=== PATIENT | female | born 1985 | race Caucasian/White ===

== ENCOUNTER 2022-07-31 08:45 | Emergency (ER) | payer OTHER ==
--- NOTE | 2022-07-31 09:28 | ED Physician Documentation ---
PD HPI FOCAL NEURO - Stated complaint Stated Complaint: HIGH HEART RATE/FACE NUMB - Chief complaint Chief Complaint: Neuro - History obtained from History obtained from: Patient - Additional information Additional information: Patient is a 37-year-old female with no significant past medical history presenting for evaluation of right-sided facial droop that she noticed this morning when she woke up at 6 AM. Patient denies a headache, numbness, weakness to extremities. She denies visual disturbance or hearing issues. She reports that multiple family members on her father side have had Morales's palsy. She denies a history of hypertension, hyperlipidemia, diabetes.She reports having RSV around [place] time but otherwise denies recent illness. Review of Systems Constitutional: denies: Fever Cardiac: denies: Chest pain / pressure Respiratory: denies: Dyspnea GI: denies: Abdominal Pain : denies: Dysuria Musculoskeletal: denies: Back pain Neurologic: reports: Focal weakness. denies: Difficulty speaking, Headache PD PAST MEDICAL HISTORY - Past Medical History Past Medical History: No Cardiovascular: None Respiratory: None Neuro: None Endocrine/Autoimmune: None GI: None SHEET METAL TECHNICIAN: None : None HEENT: None Psych: None Musculoskeletal: None Derm: None - Past Surgical History Past Surgical History: No - Present Medications Home Medications: Ambulatory Orders Medication Instructions Recorded Confirmed Valacyclovir HCl [Valtrex] 1,000 mg PO TID 7 Days #21 tablet 07/31/22 predniSONE [Deltasone] 60 mg PO DAILY 7 Days #21 tablet 07/31/22 - Allergies Allergies/Adverse Reactions: Allergies Allergy/AdvReac Type Severity Reaction Status Date / Time No Known Drug Allergies Allergy Verified 07/31/22 08:53 - Social History Does the pt smoke?: No Smoking Status: Never smoker Does the pt drink ETOH?: Yes Does the pt have substance abuse?: No - Immunizations Immunizations are current?: Yes PD ED PE NORMAL - General General: Alert and oriented X 3, No acute distress, Well developed/nourished - HEENT HEENT: Atraumatic, PERRL, EOMI, Ears normal (No herpetic lesions), Moist mucous membranes, Pharynx benign (Tongue is midline) - Neck Neck: Supple, no meningeal sign - Cardiac Cardiac: RRR, No murmur - Respiratory Respiratory: No respiratory distress, Clear bilaterally - Abdomen Abdomen: Soft, Non tender - Derm Derm: Warm and dry - Extremities Extremities: No edema - Neuro Neuro: Alert and oriented X 3, No motor deficit, No sensory deficit, Normal speech. No: obiee consultant 2-12 intact (Mild right-sided facial weakness including involvement With eye closing) NIHSS - Level of Consciousness Level of consciousness: (0) Alert, Keenly responsive LOC Questions: (0) Answers both Q's correct LOC Commands: (0) Performs both correctly - Gaze Best Gaze: (0) Normal - Visual Visual: (0) No loss - Facial Palsy Facial Palsy: (1) Minor paralysis - Motor Arms (both separate) Motor Arm (right): (0) No drift Motor Arm (left): (0) No drift - Motor Legs (both separate) Motor Leg (right): (0) No drift Motor Leg (left): (0) No drift - Limb Ataxia Limb Ataxia: (0) Absent - Sensory Sensory: (0) Normal - Best Language Best Language: (0) No aphasia - Dysarthria Dysarthria: (0) Normal - Extinction and Inattention (formally neg Extinction and inattention: (0) No abnormality - Total Score/Results Total Score/Result: 1 Results - Vitals Vitals: Vital Signs - 24 hr 07/31/22 07/31/22 08:53 09:26 Temperature 37.2 C Heart Rate 73 73 Respiratory 18 15 Rate Blood Pressure 136/63 H 130/77 O2 Saturation 99 100 Oxygen O2 Source Room air PD Medical Decision Making - ED course ED course: Pt presenting for evaluation of R sided facial droop since this AM. VSS. No other symptoms to suggest CVA. There is mild involvement with eyelid closing. Given exam and age suspect [place] Palsy. No shingles or herpetic lesions seen. Pt agreeable to treatment with prednisone and antivirals. Also given eye precautions and understands need for close follow up. Departure - Departure Disposition: 01 Home, Self Care Clinical Impression: Morales's palsy Condition: Stable Instructions: ED [place] Palsy Prescriptions: predniSONE [Deltasone] 60 mg PO DAILY 7 Days #21 tablet Valacyclovir HCl [Valtrex] 1,000 mg PO TID 7 Days #21 tablet Comments: The weakness you are experiencing is likely related to Morales's palsy which affects your facial nerve. I am going to send prescriptions to help in the treatment of this condition. I will send a prescription for prednisone, antivirals to [facility] in [place]. I would recommend using artificial teardrops during the daytime and Lubricating ointment to your right eye at night to make sure that it does not become too dry from having difficulty in closing it fully. Please call your primary care doctor to arrange for close follow-up. If you develop any new symptoms such as weakness elsewhere, headache or have any new concerns please return to the emergency department. Discharge Date/Time: 07/31/22 09:41
[2022-07-31 09:34] VITALS: BP 130/77
== END 2022-07-31 09:41 | disposition home or self-care (01) ==
LOC: ED 08:45
DX: G51.0 Bell's palsy (principal); R29.701 NIHSS score 1
CPT/HCPCS: 99281; 99283